=== PATIENT | male | born 1965 | race Caucasian/White ===

== ENCOUNTER 2016-08-08 08:32 | Emergency (ER) | payer OTHER | END 2016-08-08 09:09 | disposition home or self-care (01) | LOC: ER 08:32 | DX: M54.5 Low back pain (principal); M25.552 Pain in left hip; I10 Essential (primary) hypertension; Z98.890 Other specified postprocedural states; Z88.0 Allergy status to penicillin; Z79.899 Other long term (current) drug therapy | CPT/HCPCS: 99282 ==